=== PATIENT | female | born 1970 | race Caucasian/White ===

== ENCOUNTER 2022-03-24 14:16 | Emergency (ER) | payer OTHER, SELFPAY ==
--- NOTE | ~2022-03-24 | XR_ITS ---
XR ankle RT min 3V 03/24/2022 14:40 Indication: Right lateral ankle pain and swelling Procedure: 4 views right ankle Comparison: No prior studies for comparison. Findings: There is an avulsion fracture distal tip of the fibula. There is moderate lateral soft tiss ue swelling. Ankle mortise intact. There is an age-indeterminate avulsion fracture fragments at the m edial malleolus. There are multiple foreign bodies overlying the plantar surface of the foot, likely external. Impression: 1: Acute avulsion fracture distal tip of the fibula. 2: Age indeterminate medial malleolar avulsion fracture. Reviewed, dictated and finalized at location A. [facility]ENDER Impression: 1: Acute avulsion fracture distal tip of the fibula. 2: Age indeterminate medial malleolar avulsion fracture.
--- NOTE | 2022-03-24 14:22 | ED.LOWEXIN ---
HPI - Extremity Injury (Lower) General Chief Complaint: Extremity Injury, Lower Stated Complaint: right ankle pain Time Seen by Provider: 03/24/22 14:50 Source: patient, RN notes reviewed and old records reviewed Mode of arrival: ambulatory Limitations: no limitations History of Present Illness HPI Narrative: 50-year-old female presents to the [facility] with complaints of right ankle pain, swelling. States that she was a ladder hanging lights last night 11 30 when she fell off the ladder. Pain only in the right lateral ankle. Tenderness swelling and bruising noted to the lateral malleolus. Does have pedal pulses with capillary refill under 2 seconds. Sensation intact in all 5 toes lateral medial foot Related Data Home Medications Medication Instructions Recorded Confirmed atomoxetine 25 mg capsule mg PO 03/24/22 cyclobenzaprine 10 mg tablet mg 03/24/22 ergocalciferol (vitamin D2) 1,250 03/24/22 mcg (50,000 unit) capsule fexofenadine 180 mg tablet mg 03/24/22 (Allergy Relief (fexofenadine)) omeprazole 40 mg capsule,delayed mg 03/24/22 release oxybutynin chloride 5 mg tablet mg 03/24/22 sertraline 50 mg tablet mg 03/24/22 sucralfate 1 gram tablet 03/24/22 Allergies Allergy/AdvReac Type Severity Reaction Status Date / Time Penicillins Allergy Mild Swelling Verified 03/24/22 14:29 NSAIDS (Non-Steroidal AdvReac Unknown HX OF Verified 03/24/22 14:29 Anti-Inflamma GASTRIC BYPASS Review of Systems Review of Systems: All systems reviewed & are unremarkable except as noted in HPI and below Constitutional: Constitutional: Reports no additional constitutional complaints Eyes: Eyes: Reports no additional eye complaints ENT: Reports system reviewed and no additional complaints, except as documented Cardiovascular: Cardiovascular: Reports no additional cardiovascular complaints, Denies chest pain and Denies dyspnea Respiratory: Respiratory: Reports no additional respiratory complaints, Denies chest congestion, Denies cough and Denies dyspnea Gastrointestinal: Gastrointestinal: Reports no additional gastrointestinal complaints, Denies abdominal pain, Denies nausea and Denies vomiting Musculoskeletal: Musculoskeletal: Reports as per HPI, Reports arthralgias and Reports joint swelling Integumentary/Breasts: Skin/Breast: Reports system reviewed and no additional complaints, except as docu Neurologic: Reports system reviewed and no additional complaints, except as documented Psychiatric: Psychiatric: Reports no additional psychiatric complaints Allergic/Immunologic: Allergic/Immunologic: Reports no additional allergic/immunologic complaints PMFSH Comments At the time of my signature, I reviewed and agree with the nursing past medical, surgical, social, and family history. There is no relevant family history pertinent to the patient complaint. Exam Const: General: cooperative, healthy appearing, comfortable, no acute distress, well developed, alert, average body habitus and well nourished Nutritional Appearance: average body habitus and well nourished Orientation/consciousness: patient oriented x3 Limitations: no limitations HENMT: Head: normal to inspection Ears: hearing grossly normal bilaterally and external ears normal Face/Nose/Sinus: Normal external nose present, Normal nares present, Normal nasal mucous membranes and turbinates present and normal facial exam Face and sinus: normal facial exam Mouth: Yes lip normal and Yes moist mucous membranes Eyes: General: appearance normal, both eyes and all related structures Alignment and Position: alignment normal Periorbital: periorbital findings normal Conjunctivae: conjunctivae normal Pupils: Equal, round and reactive pupils present EOM: EOMs intact bilaterally Neck: Neck: normal visual inspection, full ROM, no lymphadenopathy and no meningeal signs Chest: Chest palpation & inspection: normal inspection of the chest Resp: Effor
[2022-03-24 14:27] VITALS: BP 133/98; PULSE 65; RESP 18; TEMP 36.8; O2SAT 100
== END 2022-03-24 15:53 | disposition home or self-care (01) ==
PROVIDERS: Emergency Provider Nurse Practitioner
DX: S82.831A Other fracture of upper and lower end of right fibula, initial encounter for closed fracture (principal); W11.XXXA Fall on and from ladder, initial encounter; K21.9 Gastro-esophageal reflux disease without esophagitis; Z98.84 Bariatric surgery status
CPT/HCPCS: 73610; 99214; G0463